=== PATIENT | male | born 1935 | race Caucasian/White ===

== ENCOUNTER → 2017-12-30 | Outpatient (CLI) | payer OTHER | LOC: BHLMT 13:15 | PROVIDERS: ATTEND Internal Medicine Cardiovascular Disease | DX: R01.1 Cardiac murmur, unspecified (principal); R53.83 Other fatigue | CPT/HCPCS: 93306-PO ==

== ENCOUNTER → 2018-01-28 | Outpatient (CLI) | payer OTHER | LOC: BHLMT 11:00 | PROVIDERS: ATTEND Internal Medicine Interventional Cardiology | DX: R00.1 Bradycardia, unspecified (principal); R09.89 Other specified symptoms and signs involving the circulatory and respiratory systems; I44.0 Atrioventricular block, first degree; I35.0 Nonrheumatic aortic (valve) stenosis; I45.10 Unspecified right bundle-branch block | CPT/HCPCS: 93005-PO ==

== ENCOUNTER → 2018-02-17 | Outpatient (CLI) | payer OTHER | LOC: BHFA 15:30 | PROVIDERS: ATTEND Internal Medicine Cardiovascular Disease | DX: R09.89 Other specified symptoms and signs involving the circulatory and respiratory systems (principal) ==